=== PATIENT | male | born 1940 | race Caucasian/White ===

== ENCOUNTER → 2017-04-16 13:52 | Outpatient (CLI) | payer MEDICARE, OTHER, SELFPAY ==
[2017-04-16 13:59] LABS: Bacteria 0 SEEN /hpf (None Seen); Mucous, Urine 0 SEEN /hpf (<or=2+); Red Blood Cells-Urine 0 SEEN /hpf (0-5)
[2017-04-16 16:06] LABS: Hematocrit 39.6 % (40-54); Hemoglobin 13.5 g/dl (13.0-16.5); Mean Corp Hgb Conc 34.1 g/gl (32-36); Mean Corpuscular Hgb 31.7 pg (27.0-32.0); Mean Platelet Vol. 10.6 fl (6.2-12.0); Platelet Count 171 K/mm3 (150-450); RBC Distribution Width CV 14.1 % (11.6-14.6); RBC Distribution Width SD 47.4 fl (35.1-43.9); Red Blood Count 4.26 M/mm3 (4.6-6.2); White Blood Count 4.4 K/mm3 (4.4-11.0)
[2017-04-16 16:13] LABS: Color, Urine Yellow (Yellow); Glucose, Dipstick Normal (Normal); Ketone-Dipstick 5 mg/dl (Negative); Leukocyte Esterase-Dipstick 25 /ul (Negative); Nitrite-Dipstick Negative (Negative); Occult Blood-Urine Negative /ul (Negative); Protein-Dipstick Negative (Negative); Urine Bilirubin Dipstick Negative (Negative); Urine Clarity Clear (Clear); Urine Urobilinogen Normal (Normal)
[2017-04-16 16:18] LABS: Hemoglobin A1c 7.1 % (4.2-6.3)
[2017-04-16 16:21] LABS: ALB/GLOB Ratio 0.8 RATIO (0.9-2.4); AST(SGOT) 21 U/L (15-37); Alanine Aminotransfer ALT/SGPT 25 U/L (16-61); Albumin, Serum 3.5 g/dL (3.2-5.0); Alkaline Phosphatase 73 U/L (45-117); Anion Gap 5 (5-15); BUN 15 mg/dL (7-18); BUN/Creat Ratio 14.2 RATIO (10-20); Calcium,Total 8.9 mg/dL (8.5-10.1); Chloride 102 mmol/L (98-107); Cholesterol 156 mg/dL (200); Creatinine, Serum 1.06 mg/dL (0.70-1.30); EST Glomerular Filtration Rate 73 mL/min (>60); Est Glom Filt Rate - Afr Amer 88 mL/min (>60); Globulin 4.4 g/dL (2.2-4.2); Glucose 74 mg/dL (74-106); High Density Lipoprotein 59 mg/dL; Potassium 3.8 mmol/L (3.5-5.1); Protein, Total 7.9 g/dL (6.4-8.2); Sodium Level 138 mmol/L (136-145); T4 Free Direct 0.78 ng/dL (0.76-1.46); Thyroid Stim Hormone (TSH) 7.05 uIU/mL (0.358-3.74); Triglycerides 135 mg/dL; Very Low Density Lipoprotein 27 mg/dL (5-40)
[2017-04-16 16:33] LABS: Squamous Epithelial Cells - UA 0-5 SEEN /hpf (0-5); White Blood Cells 0-5 SEEN /hpf (0-5)
[2017-04-16 16:53] LABS: Scan Indicated on CBC? Y/N NO
[2017-04-19 08:06] LABS: Anti-Thyroglobulin AB < 1.0 IU/mL (0.0-0.9); Thyroglobulin, Serum Qt. 11.2 ng/mL (1.4-29.2); Thyroid Peroxidase AB 11 IU/mL (0-34)
== END ==
PROVIDERS: Family Provider Family Medicine; PCP Family Medicine; Visit Provider Family Medicine
DX: E11.9 Type 2 diabetes mellitus without complications (principal); E03.9 Hypothyroidism, unspecified
CPT/HCPCS: 36415; 80053; 80061; 81001; 83036; 84432; 84439; 84443; 85027; 86376; 86800

== ENCOUNTER → 2017-08-19 11:45 | Outpatient (CLI) | payer MEDICARE, OTHER, SELFPAY ==
[2017-08-19 14:29] LABS: Color, Urine Yellow (Yellow); Glucose, Dipstick Normal (Normal); Ketone-Dipstick Negative (Negative); Leukocyte Esterase-Dipstick 25 /ul (Negative); Nitrite-Dipstick Negative (Negative); Occult Blood-Urine Negative /ul (Negative); Protein-Dipstick Negative (Negative); Specific Gravity, Urine 1.025 (1.002-1.030); Urine Bilirubin Dipstick Negative (Negative); Urine Clarity Clear (Clear); Urine Urobilinogen Normal (Normal)
[2017-08-19 14:45] LABS: Red Blood Cells-Urine 0-5 SEEN /hpf (0-5); White Blood Cells 0-5 SEEN /hpf (0-5)
[2017-08-19 14:47] LABS: Bacteria 1+ /hpf (None Seen); Mucous, Urine 1+ /hpf (<or=2+)
[2017-08-19 14:50] LABS: Hyaline Cast 5-10 SEEN /lpf (0-5)
[2017-08-19 14:51] LABS: Squamous Epithelial Cells - UA 0-5 SEEN /hpf (0-5)
[2017-08-19 14:55] LABS: Calcium Oxalate Crystals Ur 2+ /hpf (<or=2+)
[2017-08-19 14:58] LABS: Hematocrit 40.8 % (40-54); Hemoglobin 14.4 g/dl (13.0-16.5); Mean Corp Hgb Conc 35.3 g/gl (32-36); Mean Corpuscular Hgb 32.8 pg (27.0-32.0); Mean Corpuscular Volume 92.9 fL (80-94); Platelet Count 163 K/mm3 (150-450); RBC Distribution Width CV 12.6 % (11.6-14.6); RBC Distribution Width SD 41.9 fl (35.1-43.9); Red Blood Count 4.39 M/mm3 (4.6-6.2); White Blood Count 5.4 K/mm3 (4.4-11.0)
[2017-08-19 15:01] LABS: Scan Indicated on CBC? Y/N NO
[2017-08-19 15:07] LABS: ALB/GLOB Ratio 0.7 RATIO (0.9-2.4); AST(SGOT) 19 U/L (15-37); Alanine Aminotransfer ALT/SGPT 28 U/L (16-61); Albumin, Serum 3.5 g/dL (3.2-5.0); Alkaline Phosphatase 71 U/L (45-117); Anion Gap 6 (5-15); BUN 20 mg/dL (7-18); BUN/Creat Ratio 17.1 RATIO (10-20); Calcium,Total 8.7 mg/dL (8.5-10.1); Chloride 105 mmol/L (98-107); Cholesterol 161 mg/dL (200); Creatinine, Serum 1.17 mg/dL (0.70-1.30); EST Glomerular Filtration Rate 65 mL/min (>60); Est Glom Filt Rate - Afr Amer 78 mL/min (>60); Globulin 4.7 g/dL (2.2-4.2); Glucose 134 mg/dL (74-106); High Density Lipoprotein 63 mg/dL; Potassium 4.3 mmol/L (3.5-5.1); Protein, Total 8.2 g/dL (6.4-8.2); Sodium Level 141 mmol/L (136-145); T4 Free Direct 0.87 ng/dL (0.76-1.46); Thyroid Stim Hormone (TSH) 3.76 uIU/mL (0.358-3.74); Triglycerides 86 mg/dL; Very Low Density Lipoprotein 17 mg/dL (5-40)
[2017-08-19 15:10] LABS: Hemoglobin A1c 6.2 % (4.2-6.3)
[2017-08-21 09:35] LABS: Anti-Thyroglobulin AB < 1.0 IU/mL (0.0-0.9); Thyroglobulin, Serum Qt. 7.9 ng/mL (1.4-29.2); Thyroid Peroxidase AB 8 IU/mL (0-34)
== END ==
PROVIDERS: Family Provider Family Medicine; PCP Family Medicine; Visit Provider Family Medicine
DX: E11.9 Type 2 diabetes mellitus without complications (principal); E03.9 Hypothyroidism, unspecified
CPT/HCPCS: 80053; 80061; 81001; 83036; 84432; 84439; 84443; 85027; 86376; 86800

== ENCOUNTER → 2017-11-20 14:15 | Outpatient (CLI) | payer MEDICARE, OTHER, SELFPAY ==
[2017-11-20 16:04] LABS: Absolute Lymphocyte Count 0.42 X10^3/ul (0.83-4.51); Absolute Neutrophil Count 5.2 X10^3/uL (2.0-7.7); Basophil# 0.01 X10^3/uL; Basophil% 0.2 % (0-1); Eosinophil# 0.04 X10^3/uL; Eosinophils% 0.7 % (0-5); Hematocrit 37.5 % (40-54); Hemoglobin 13.4 g/dl (13.0-16.5); Lymphocyte # 0.42 X10^3/ul (4.0); Lymphocyte % 6.8 % (19-41); Mean Corp Hgb Conc 35.7 g/gl (32-36); Mean Corpuscular Hgb 33.2 pg (27.0-32.0); Mean Corpuscular Volume 92.8 fL (80-94); Mean Platelet Vol. 10.7 fl (6.2-12.0); Monocyte# 0.52 X10^3/uL; Monocyte% 8.5 % (0-10); Neutrophil # 5.15 X10^3/uL (2.7-7.7); Neutrophil % 83.6 % (47-70); Platelet Count 160 K/mm3 (150-450); RBC Distribution Width SD 39.9 fl (35.1-43.9); Red Blood Count 4.04 M/mm3 (4.6-6.2); White Blood Count 6.2 K/mm3 (4.4-11.0)
[2017-11-20 16:07] LABS: Differential Indicated SCAN CRITERIA MET; POSITIVE COUNT NO; POSITIVE DIFFERENTIAL YES; POSITIVE MORPHOLOGY NO
[2017-11-20 16:21] LABS: ALB/GLOB Ratio 0.7 RATIO (0.9-2.4); AST(SGOT) 18 U/L (15-37); Alanine Aminotransfer ALT/SGPT 27 U/L (16-61); Albumin, Serum 3.3 g/dL (3.2-5.0); Alkaline Phosphatase 109 U/L (45-117); Anion Gap 10 (5-15); BUN 14 mg/dL (7-18); BUN/Creat Ratio 11.8 RATIO (10-20); Calcium,Total 8.9 mg/dL (8.5-10.1); Chloride 100 mmol/L (98-107); Creatinine, Serum 1.19 mg/dL (0.70-1.30); EST Glomerular Filtration Rate 63 mL/min (>60); Est Glom Filt Rate - Afr Amer 77 mL/min (>60); Globulin 4.5 g/dL (2.2-4.2); Glucose 224 mg/dL (74-106); Potassium 3.9 mmol/L (3.5-5.1); Protein, Total 7.8 g/dL (6.4-8.2); Sodium Level 138 mmol/L (136-145); Thyroid Stim Hormone (TSH) 0.62 uIU/mL (0.358-3.74)
[2017-11-20 16:23] LABS: Hemoglobin A1c 7.3 % (4.2-6.3)
== END ==
PROVIDERS: Family Provider Family Medicine; PCP Family Medicine; Visit Provider Family Medicine
DX: E11.9 Type 2 diabetes mellitus without complications (principal); E03.9 Hypothyroidism, unspecified; J44.9 Chronic obstructive pulmonary disease, unspecified
CPT/HCPCS: 36415; 80053; 83036; 84443; 85025

== ENCOUNTER → 2018-02-10 13:45 | Outpatient (CLI) | payer MEDICARE, OTHER, SELFPAY ==
[2018-02-10 15:43] LABS: Absolute Lymphocyte Count 0.77 X10^3/ul (0.83-4.51); Absolute Neutrophil Count 3.8 X10^3/uL (2.0-7.7); Basophil# 0.03 X10^3/uL; Basophil% 0.6 % (0-1); Eosinophil# 0.06 X10^3/uL; Eosinophils% 1.2 % (0-5); Hematocrit 42.6 % (40-54); Hemoglobin 14.9 g/dl (13.0-16.5); Lymphocyte # 0.77 X10^3/ul (4.0); Lymphocyte % 15.1 % (19-41); Mean Corpuscular Hgb 32.3 pg (27.0-32.0); Mean Corpuscular Volume 92.4 fL (80-94); Mean Platelet Vol. 10.6 fl (6.2-12.0); Monocyte# 0.42 X10^3/uL; Monocyte% 8.2 % (0-10); Neutrophil # 3.81 X10^3/uL (2.7-7.7); Neutrophil % 74.7 % (47-70); Platelet Count 169 K/mm3 (150-450); RBC Distribution Width CV 13.6 % (11.6-14.6); RBC Distribution Width SD 45.4 fl (35.1-43.9); Red Blood Count 4.61 M/mm3 (4.6-6.2); White Blood Count 5.1 K/mm3 (4.4-11.0)
[2018-02-10 16:01] LABS: Microalbumin,Random Urine 17.7 mg/L (NO RANGE EST.); Microalbumin:Creatinine Ratio 7.3 mg/g CRE (<30 mg/g CRE)
[2018-02-10 16:07] LABS: ALB/GLOB Ratio 0.8 RATIO (0.9-2.4); AST(SGOT) 20 U/L (15-37); Alanine Aminotransfer ALT/SGPT 28 U/L (16-61); Albumin, Serum 3.7 g/dL (3.2-5.0); Alkaline Phosphatase 85 U/L (45-117); Anion Gap 9 (5-15); BUN 15 mg/dL (7-18); BUN/Creat Ratio 12.9 RATIO (10-20); Calcium,Total 9.2 mg/dL (8.5-10.1); Chloride 100 mmol/L (98-107); Cholesterol 167 mg/dL (200); Creatinine, Serum 1.16 mg/dL (0.70-1.30); EST Glomerular Filtration Rate 65 mL/min (>60); Est Glom Filt Rate - Afr Amer 79 mL/min (>60); Globulin 4.6 g/dL (2.2-4.2); Glucose 182 mg/dL (74-106); High Density Lipoprotein 60 mg/dL; Potassium 4.5 mmol/L (3.5-5.1); Protein, Total 8.3 g/dL (6.4-8.2); Sodium Level 138 mmol/L (136-145); T4 Free Direct 1.08 ng/dL (0.76-1.46); Thyroid Stim Hormone (TSH) 2.31 uIU/mL (0.358-3.74); Triglycerides 158 mg/dL; Very Low Density Lipoprotein 32 mg/dL (5-40)
[2018-02-10 16:09] LABS: POSITIVE COUNT NO; POSITIVE DIFFERENTIAL NO; POSITIVE MORPHOLOGY NO
[2018-02-10 16:14] LABS: Hemoglobin A1c 8.3 % (4.2-6.3)
== END ==
PROVIDERS: Family Provider Family Medicine; PCP Family Medicine; Visit Provider Family Medicine
DX: E11.9 Type 2 diabetes mellitus without complications (principal); E03.9 Hypothyroidism, unspecified; J44.9 Chronic obstructive pulmonary disease, unspecified
CPT/HCPCS: 36415; 80053; 80061; 82043; 82570; 83036; 84439; 84443; 85025

== ENCOUNTER → 2018-04-29 12:17 | Outpatient (CLI) | payer MEDICARE, OTHER, SELFPAY ==
--- NOTE | 2018-04-29 12:22 | RAD_ITS ---
HISTORY: COPD exacerbationleft lung surgery 2 years ago EXAM/TECHNIQUE: XR Chest 2 Views: COMPARISON: None. FINDINGS: # of images incl. paperwork: 3 Chronic postsurgical changes left lung apex with partial left pneumonectomy, surgical clips, rib defects, and volume loss. Patchy opacities mid and lower lungs bilaterally. No apparent pneumothorax or pleural effusion. No acute osseous abnormality. Heart size within normal limits. RAD/Chest PA and Lateral IMPRESSION: Patchy opacities mid and lower lungs bilaterally. Without priors of acute edema or pneumonia cannot be excluded. This could potentially be chronic however. Status post partial left pneumonectomy. at 2241 Reported and signed by: Caden Riley MD Electronically Signed: Caden Riley, at 22:40 EST Tel , Service support ,
== END ==
PROVIDERS: Family Provider Family Medicine; PCP Family Medicine; Referring Provider Family Medicine; Visit Provider Family Medicine
DX: J44.1 Chronic obstructive pulmonary disease with (acute) exacerbation (principal)
CPT/HCPCS: 71046

== ENCOUNTER → 2018-06-27 | Outpatient (CLI) | payer MEDICARE, OTHER, SELFPAY ==
[2018-06-27 18:10] LABS: ALB/GLOB Ratio 0.9 RATIO (0.9-2.4); AST(SGOT) 28 U/L (15-37); Alanine Aminotransfer ALT/SGPT 31 U/L (16-61); Albumin, Serum 3.8 g/dL (3.2-5.0); Alkaline Phosphatase 77 U/L (45-117); Anion Gap 6 (5-15); BUN 10 mg/dL (7-18); BUN/Creat Ratio 8.5 RATIO (10-20); Calcium,Total 8.8 mg/dL (8.5-10.1); Chloride 105 mmol/L (98-107); Cholesterol 155 mg/dL (200); Creatinine, Serum 1.18 mg/dL (0.70-1.30); EST Glomerular Filtration Rate 64 mL/min (>60); Est Glom Filt Rate - Afr Amer 77 mL/min (>60); Globulin 4.1 g/dL (2.2-4.2); Glucose 116 mg/dL (74-106); High Density Lipoprotein 60 mg/dL; Potassium 4.1 mmol/L (3.5-5.1); Protein, Total 7.9 g/dL (6.4-8.2); Sodium Level 141 mmol/L (136-145); Triglycerides 122 mg/dL; Very Low Density Lipoprotein 24 mg/dL (5-40)
[2018-06-27 18:11] LABS: Hemoglobin A1c 6.1 % (4.2-6.3)
== END | disposition home or self-care (01) ==
LOC: MFPLAB 15:12
PROVIDERS: Family Provider Family Medicine; PCP Family Medicine; Referring Provider Family Medicine; Visit Provider Family Medicine
DX: E11.9 Type 2 diabetes mellitus without complications (principal)
CPT/HCPCS: 36415; 80053; 80061; 83036

== ENCOUNTER → 2018-10-01 | Outpatient (CLI) | payer MEDICARE, OTHER, SELFPAY ==
--- NOTE | 2018-10-01 12:01 | RAD_ITS ---
STUDY: X-RAY CHEST REASON FOR EXAM: Male, 77 years old. COPD, shortness of breath. TECHNIQUE: PA and lateral views of the chest on 3 films. COMPARISON: PA and lateral chest x-ray on 3 images April 29, 2018. FINDINGS: Postsurgical changes at the left apex again noted. There is chronic appearing stranding in the left lung base and stable left apical opacity. Borderline to mild interstitial prominence in the right base is stable. No new infiltrate. There is no demonstrated pleural abnormality. Normal size heart. There is stable leftward deviation of the airway at the level of the thoracic inlet and cephalad retraction of left hilum toward the left lung opacity/postsurgical change, consistent with regional scarring and volume loss. Normal right paratracheal mediastinum and right hilum. Normal visualized pulmonary arteries. Normal visualized aortic arch and descending thoracic aorta. There are stable degenerative changes of the visualized thoracic spine. Normal visualized ribs, clavicles, and shoulders. There is no demonstrated abnormality of the visualized soft tissue structures of the upper abdomen. RAD/Chest PA and Lateral IMPRESSION: Stable x-ray examination of the chest since April 2018, as described. Electronically Signed: Rigoberto Lowe MD at 13:56 EDT , Service support ,
== END | disposition home or self-care (01) ==
LOC: MTRAD 11:59
PROVIDERS: Family Provider Family Medicine; PCP Family Medicine; Referring Provider Family Medicine; Visit Provider Family Medicine
DX: J44.1 Chronic obstructive pulmonary disease with (acute) exacerbation (principal)
CPT/HCPCS: 71046

== ENCOUNTER → 2018-11-19 | Outpatient (CLI) | payer MEDICARE, OTHER, SELFPAY ==
[2018-11-19 17:32] LABS: Absolute Lymphocyte Count 0.71 X10^3/uL (0.83-4.51); Absolute Neutrophil Count 3.7 X10^3/uL (2.0-7.7); Basophil# 0.03 X10^3/uL; Basophil% 0.6 % (0-1); Eosinophil# 0.07 X10^3/uL; Eosinophils% 1.4 % (0-5); Hematocrit 40.2 % (40-54); Hemoglobin 13.8 g/dL (13.0-16.5); Lymphocyte # 0.71 X10^3/ul (4.0); Lymphocyte % 13.8 % (19-41); Mean Corp Hgb Conc 34.3 g/dL (32-36); Mean Corpuscular Hgb 32.7 pg (27.0-32.0); Mean Corpuscular Volume 95.3 fL (80-94); Mean Platelet Vol. 10.9 fl (6.2-12.0); Monocyte# 0.59 X10^3/uL; Monocyte% 11.5 % (0-10); NRBC Flagged by Analyzer 0 % (0-5); Neutrophil # 3.72 X10^3/uL (2.7-7.7); Neutrophil % 72.5 % (47-70); Platelet Count 159 K/mm3 (150-450); RBC Distribution Width CV 13.1 % (11.6-14.6); RBC Distribution Width SD 45.4 fl (35.1-43.9); Red Blood Count 4.22 M/mm3 (4.6-6.2); White Blood Count 5.1 K/mm3 (4.4-11.0)
[2018-11-19 17:54] LABS: Microalbumin,Random Urine 7.8 mg/L (NO RANGE EST.); Microalbumin:Creatinine Ratio 5.7 mg/g CRE (<30 mg/g CRE)
[2018-11-19 18:04] LABS: ALB/GLOB Ratio 0.8 RATIO (0.9-2.4); AST(SGOT) 24 U/L (15-37); Alanine Aminotransfer ALT/SGPT 25 U/L (16-61); Albumin, Serum 3.4 g/dL (3.2-5.0); Alkaline Phosphatase 79 U/L (45-117); Anion Gap 6 (5-15); BUN 12 mg/dL (7-18); BUN/Creat Ratio 9.4 RATIO (10-20); Calcium,Total 8.7 mg/dL (8.5-10.1); Chloride 107 mmol/L (98-107); Cholesterol 153 mg/dL (200); Creatinine, Serum 1.27 mg/dL (0.70-1.30); EST Glomerular Filtration Rate 59 mL/min (>60); Est Glom Filt Rate - Afr Amer 71 mL/min (>60); Globulin 4.1 g/dL (2.2-4.2); Glucose 169 mg/dL (74-106); High Density Lipoprotein 75 mg/dL; Potassium 4.1 mmol/L (3.5-5.1); Protein, Total 7.5 g/dL (6.4-8.2); Sodium Level 141 mmol/L (136-145); T4 Free Direct 0.87 ng/dL (0.76-1.46); Thyroid Stim Hormone (TSH) 4.78 uIU/mL (0.358-3.74); Triglycerides 86 mg/dL; Very Low Density Lipoprotein 17 mg/dL (5-40)
== END | disposition home or self-care (01) ==
LOC: MFPLAB 15:48
PROVIDERS: Family Provider Family Medicine; PCP Family Medicine; Referring Provider Family Medicine; Visit Provider Family Medicine
DX: E11.9 Type 2 diabetes mellitus without complications (principal); E03.9 Hypothyroidism, unspecified; J44.9 Chronic obstructive pulmonary disease, unspecified
CPT/HCPCS: 36415; 80053; 80061; 82043; 82570; 83036; 84439; 84443; 85025

== ENCOUNTER → 2019-02-10 14:20 | Outpatient (CLI) | payer MEDICARE, OTHER, SELFPAY ==
[2019-02-10 15:14] LABS: Absolute Lymphocyte Count 0.66 X10^3/uL (0.83-4.51); Absolute Neutrophil Count 5.5 X10^3/uL (2.0-7.7); Basophil# 0.04 X10^3/uL; Basophil% 0.6 % (0-1); Eosinophil# 0.09 X10^3/uL; Eosinophils% 1.3 % (0-5); Hematocrit 43.9 % (40-54); Hemoglobin 14.9 g/dL (13.0-16.5); Lymphocyte # 0.66 X10^3/ul (4.0); Lymphocyte % 9.6 % (19-41); Mean Corp Hgb Conc 33.9 g/dL (32-36); Mean Corpuscular Hgb 31.5 pg (27.0-32.0); Mean Corpuscular Volume 92.8 fL (80-94); Mean Platelet Vol. 10.8 fl (6.2-12.0); Monocyte# 0.55 X10^3/uL; NRBC Flagged by Analyzer 0 % (0-5); Neutrophil # 5.52 X10^3/uL (2.7-7.7); Neutrophil % 80.1 % (47-70); Platelet Count 198 K/mm3 (150-450); RBC Distribution Width CV 11.9 % (11.6-14.6); Red Blood Count 4.73 M/mm3 (4.6-6.2); White Blood Count 6.9 K/mm3 (4.4-11.0)
[2019-02-10 15:30] LABS: Hemoglobin A1c 7.1 % (4.2-6.3)
[2019-02-10 15:40] LABS: ALB/GLOB Ratio 0.8 RATIO (0.9-2.4); AST(SGOT) 19 U/L (15-37); Alanine Aminotransfer ALT/SGPT 26 U/L (16-61); Albumin, Serum 3.7 g/dL (3.2-5.0); Alkaline Phosphatase 77 U/L (45-117); Anion Gap 9 (5-15); BUN 15 mg/dL (7-18); BUN/Creat Ratio 9.4 RATIO (10-20); Calcium,Total 9.5 mg/dL (8.5-10.1); Chloride 102 mmol/L (98-107); Cholesterol 131 mg/dL (200); Creatinine, Serum 1.59 mg/dL (0.70-1.30); EST Glomerular Filtration Rate 45 mL/min (>60); Est Glom Filt Rate - Afr Amer 55 mL/min (>60); Globulin 4.7 g/dL (2.2-4.2); Glucose 198 mg/dL (74-106); High Density Lipoprotein 67 mg/dL; Potassium 4.6 mmol/L (3.5-5.1); Protein, Total 8.4 g/dL (6.4-8.2); Sodium Level 137 mmol/L (136-145); Thyroid Stim Hormone (TSH) 4.55 uIU/mL (0.358-3.74); Triglycerides 101 mg/dL; Very Low Density Lipoprotein 20 mg/dL (5-40)
== END ==
PROVIDERS: Family Provider Family Medicine; PCP Family Medicine; Visit Provider Family Medicine
DX: E11.9 Type 2 diabetes mellitus without complications (principal); E03.9 Hypothyroidism, unspecified; J44.9 Chronic obstructive pulmonary disease, unspecified
CPT/HCPCS: 36415; 80053; 80061; 83036; 84443; 85025

== ENCOUNTER → 2019-03-05 10:06 | Outpatient (CLI) | payer MEDICARE, OTHER, SELFPAY ==
[2019-03-05 12:33] LABS: Anion Gap 5 (5-15); BUN 15 mg/dL (7-18); BUN/Creat Ratio 12.9 RATIO (10-20); Chloride 105 mmol/L (98-107); Creatinine, Serum 1.16 mg/dL (0.70-1.30); EST Glomerular Filtration Rate 65 mL/min (>60); Est Glom Filt Rate - Afr Amer 79 mL/min (>60); Glucose 192 mg/dL (74-106); Potassium 4.1 mmol/L (3.5-5.1); Sodium Level 138 mmol/L (136-145)
== END ==
PROVIDERS: Family Provider Family Medicine; PCP Family Medicine; Referring Provider Family Medicine; Visit Provider Family Medicine
DX: N18.3 Chronic kidney disease, stage 3 (moderate) (principal)
CPT/HCPCS: 36415; 80048

== ENCOUNTER → 2019-05-13 | Outpatient (CLI) | payer MEDICARE, OTHER, SELFPAY ==
[2019-05-13 15:50] LABS: Hemoglobin A1c 6.2 % (4.2-6.3)
[2019-05-13 15:57] LABS: Microalbumin,Random Urine 11.3 mg/L (NO RANGE EST.); Microalbumin:Creatinine Ratio 10.6 mg/g CRE (<30 mg/g CRE)
[2019-05-13 16:00] LABS: ALB/GLOB Ratio 0.8 RATIO (0.9-2.4); AST(SGOT) 22 U/L (15-37); Alanine Aminotransfer ALT/SGPT 26 U/L (16-61); Albumin, Serum 3.6 g/dL (3.2-5.0); Alkaline Phosphatase 71 U/L (45-117); Anion Gap 6 (5-15); BUN 16 mg/dL (7-18); BUN/Creat Ratio 13.6 RATIO (10-20); Calcium,Total 8.8 mg/dL (8.5-10.1); Chloride 107 mmol/L (98-107); Creatinine, Serum 1.18 mg/dL (0.70-1.30); EST Glomerular Filtration Rate 64 mL/min (>60); Est Glom Filt Rate - Afr Amer 77 mL/min (>60); Globulin 4.4 g/dL (2.2-4.2); Glucose 152 mg/dL (74-106); Potassium 4.1 mmol/L (3.5-5.1); Sodium Level 139 mmol/L (136-145); T4 Free Direct 1.27 ng/dL (0.76-1.46); Thyroid Stim Hormone (TSH) 0.64 uIU/mL (0.358-3.74)
== END | disposition home or self-care (01) ==
LOC: MTLAB 11:53
PROVIDERS: PCP Family Medicine; Referring Provider Family Medicine; Visit Provider Family Medicine
DX: E03.9 Hypothyroidism, unspecified (principal); E11.22 Type 2 diabetes mellitus with diabetic chronic kidney disease; N18.3 Chronic kidney disease, stage 3 (moderate)
CPT/HCPCS: 36415; 80053; 82043; 82570; 83036; 84439; 84443

== ENCOUNTER → 2019-12-18 | Outpatient (CLI) | payer MEDICARE, OTHER, SELFPAY ==
[2019-12-18 15:10] LABS: Bacteria 0 SEEN /hpf (None Seen); Mucous, Urine 0 SEEN /hpf (<or=2+); Red Blood Cells-Urine 0 SEEN /hpf (0-5); Squamous Epithelial Cells - UA 0 SEEN /hpf (0-5); White Blood Cells 0 SEEN /hpf (0-5)
[2019-12-18 17:39] LABS: Color, Urine Yellow (Yellow); Glucose, Dipstick Normal (Normal); Ketone-Dipstick Negative (Negative); Leukocyte Esterase-Dipstick Negative /ul (Negative); Nitrite-Dipstick Negative (Negative); Occult Blood-Urine Negative /ul (Negative); Protein-Dipstick 15 mg/dl (Negative); Specific Gravity, Urine 1.015 (1.002-1.030); Urine Bilirubin Dipstick Negative (Negative); Urine Clarity Clear (Clear); Urine Urobilinogen Normal (Normal)
[2019-12-18 17:41] LABS: Absolute Lymphocyte Count 0.68 X10^3/uL (0.83-4.51); Absolute Neutrophil Count 3.4 X10^3/uL (2.0-7.7); Basophil# 0.03 X10^3/uL; Basophil% 0.6 % (0-1); Eosinophil# 0.07 X10^3/uL; Eosinophils% 1.5 % (0-5); Hematocrit 40.9 % (40-54); Hemoglobin 14.1 g/dL (13.0-16.5); Lymphocyte # 0.68 X10^3/ul (4.0); Lymphocyte % 14.5 % (19-41); Mean Corp Hgb Conc 34.5 g/dL (32-36); Mean Corpuscular Hgb 32.5 pg (27.0-32.0); Mean Corpuscular Volume 94.2 fL (80-94); Mean Platelet Vol. 11.1 fl (6.2-12.0); Monocyte# 0.51 X10^3/uL; Monocyte% 10.9 % (0-10); NRBC Flagged by Analyzer 0 % (0-5); Neutrophil # 3.38 X10^3/uL (2.7-7.7); Neutrophil % 72.3 % (47-70); Platelet Count 164 K/mm3 (150-450); RBC Distribution Width CV 13.4 % (11.6-14.6); RBC Distribution Width SD 45.6 fl (35.1-43.9); Red Blood Count 4.34 M/mm3 (4.6-6.2); White Blood Count 4.7 K/mm3 (4.4-11.0)
[2019-12-18 17:42] LABS: Protein:Creat Ratio 82 mg/g CRE (0-200)
[2019-12-18 17:49] LABS: Hemoglobin A1c 6.3 % (3.8-5.6); Vitamin D,25 Hydroxy 48.3 ng/mL
[2019-12-18 18:03] LABS: ALB/GLOB Ratio 0.8 RATIO (0.9-2.4); AST(SGOT) 18 U/L (15-37); Alanine Aminotransfer ALT/SGPT 28 U/L (16-61); Albumin, Serum 3.4 g/dL (3.2-5.0); Alkaline Phosphatase 85 U/L (45-117); Anion Gap 5 (5-15); BUN 16 mg/dL (7-18); BUN/Creat Ratio 13.4 RATIO (10-20); Calcium,Total 8.7 mg/dL (8.5-10.1); Chloride 104 mmol/L (98-107); Creatinine, Serum 1.19 mg/dL (0.70-1.30); EST Glomerular Filtration Rate 63 mL/min (>60); Est Glom Filt Rate - Afr Amer 76 mL/min (>60); Globulin 4.5 g/dL (2.2-4.2); Glucose 108 mg/dL (74-106); Potassium 4.2 mmol/L (3.5-5.1); Protein, Total 7.9 g/dL (6.4-8.2); Sodium Level 138 mmol/L (136-145); T4 Free Direct 1.02 ng/dL (0.76-1.46)
[2019-12-18 18:12] LABS: PTHIN 51.2 pg/mL (18.4-80.1)
== END | disposition home or self-care (01) ==
LOC: MFPLAB 15:07
PROVIDERS: PCP Family Medicine; Referring Provider Family Medicine; Visit Provider Family Medicine
DX: E03.9 Hypothyroidism, unspecified (principal); E11.22 Type 2 diabetes mellitus with diabetic chronic kidney disease; N18.30 Chronic kidney disease, stage 3 unspecified
CPT/HCPCS: 36415; 80053; 81001; 82306; 82570; 83036; 83970; 84156; 84439; 84443; 85025

== ENCOUNTER → 2020-04-19 10:14 | Outpatient (CLI) | payer MEDICARE, OTHER, SELFPAY ==
[2020-04-19 12:21] LABS: Absolute Lymphocyte Count 0.91 X10^3/uL (0.83-4.51); Basophil# 0.03 X10^3/uL; Basophil% 0.5 % (0-1); Eosinophil# 0.09 X10^3/uL; Eosinophils% 1.6 % (0-5); Hemoglobin 14.5 g/dL (13.0-16.5); Lymphocyte # 0.91 X10^3/ul (4.0); Mean Corp Hgb Conc 35.4 g/dL (32-36); Mean Corpuscular Volume 96.2 fL (80-94); Monocyte# 0.64 X10^3/uL; Monocyte% 11.2 % (0-10); NRBC Flagged by Analyzer 0 % (0-5); Neutrophil # 4.01 X10^3/uL (2.7-7.7); Neutrophil % 70.3 % (47-70); Platelet Count 167 K/mm3 (150-450); RBC Distribution Width CV 12.6 % (11.6-14.6); RBC Distribution Width SD 43.7 fl (35.1-43.9); Red Blood Count 4.26 M/mm3 (4.6-6.2); White Blood Count 5.7 K/mm3 (4.4-11.0)
[2020-04-19 12:44] LABS: Hemoglobin A1c 6.4 % (3.8-5.6)
[2020-04-19 13:02] LABS: ALB/GLOB Ratio 0.8 RATIO (0.9-2.4); AST(SGOT) 21 U/L (15-37); Alanine Aminotransfer ALT/SGPT 26 U/L (16-61); Albumin, Serum 3.5 g/dL (3.2-5.0); Alkaline Phosphatase 91 U/L (45-117); Anion Gap 5 (5-15); BUN 18 mg/dL (7-18); BUN/Creat Ratio 13.4 RATIO (10-20); Calcium,Total 9.4 mg/dL (8.5-10.1); Chloride 101 mmol/L (98-107); Creatinine, Serum 1.34 mg/dL (0.70-1.30); EST Glomerular Filtration Rate 55 mL/min (>60); Est Glom Filt Rate - Afr Amer 66 mL/min (>60); Globulin 4.6 g/dL (2.2-4.2); Glucose 228 mg/dL (74-106); Potassium 4.2 mmol/L (3.5-5.1); Protein, Total 8.1 g/dL (6.4-8.2); Sodium Level 135 mmol/L (136-145); Thyroid Stim Hormone (TSH) 5.54 uIU/mL (0.358-3.74)
[2020-04-19 13:13] LABS: Microalbumin,Random Urine 21.6 mg/L (NO RANGE EST.); Microalbumin:Creatinine Ratio 15.4 mg/g CRE (<30 mg/g CRE)
== END ==
PROVIDERS: PCP Family Medicine; Referring Provider Family Medicine; Visit Provider Family Medicine
DX: E03.9 Hypothyroidism, unspecified (principal); J44.9 Chronic obstructive pulmonary disease, unspecified; E11.22 Type 2 diabetes mellitus with diabetic chronic kidney disease; N18.30 Chronic kidney disease, stage 3 unspecified
CPT/HCPCS: 36415; 80053; 82043; 82570; 83036; 84443; 85025

== ENCOUNTER → 2020-08-02 11:24 | Outpatient (CLI) | payer MEDICARE, SELFPAY ==
[2020-08-02 15:21] LABS: Absolute Lymphocyte Count 0.55 X10^3/uL (0.83-4.51); Basophil# 0.03 X10^3/uL; Basophil% 0.4 % (0-1); Eosinophil# 0.09 X10^3/uL; Eosinophils% 1.2 % (0-5); Hematocrit 36.1 % (40-54); Hemoglobin 12.4 g/dL (13.0-16.5); Lymphocyte # 0.55 X10^3/ul (0.83-4.51); Lymphocyte % 7.4 % (19-41); Mean Corp Hgb Conc 34.3 g/dL (32-36); Mean Corpuscular Hgb 32.2 pg (27.0-32.0); Mean Corpuscular Volume 93.8 fL (80-94); Mean Platelet Vol. 10.7 fl (6.2-12.0); Monocyte# 0.73 X10^3/uL; Monocyte% 9.8 % (0-10); NRBC Flagged by Analyzer 0 % (0-5); Neutrophil # 6.01 X10^3/uL (2.7-7.7); Neutrophil % 80.8 % (47-70); POSITIVE DIFFERENTIAL YES; Platelet Count 284 K/mm3 (150-450); RBC Distribution Width CV 11.8 % (11.6-14.6); RBC Distribution Width SD 40.5 fl (35.1-43.9); Red Blood Count 3.85 M/mm3 (4.6-6.2); White Blood Count 7.4 K/mm3 (4.4-11.0)
[2020-08-02 15:23] LABS: Differential Indicated SCAN CRITERIA MET
[2020-08-02 15:35] LABS: Protein, Urine (Random) 54.5 mg/dL (<11.9); Protein:Creat Ratio 349 mg/g CRE (0-200)
[2020-08-02 15:38] LABS: Hemoglobin A1c 7.7 % (3.8-5.6)
[2020-08-02 15:44] LABS: ALB/GLOB Ratio 0.5 RATIO (0.9-2.4); AST(SGOT) 16 U/L (15-37); Alanine Aminotransfer ALT/SGPT 24 U/L (16-61); Albumin, Serum 2.8 g/dL (3.2-5.0); Alkaline Phosphatase 110 U/L (45-117); Anion Gap 6 (5-15); BUN 17 mg/dL (7-18); BUN/Creat Ratio 13.7 RATIO (10-20); Calcium,Total 9.5 mg/dL (8.5-10.1); Chloride 97 mmol/L (98-107); Cholesterol 119 mg/dL (200); Creatinine, Serum 1.24 mg/dL (0.70-1.30); EST Glomerular Filtration Rate 60 mL/min (>60); Est Glom Filt Rate - Afr Amer 73 mL/min (>60); Globulin 5.2 g/dL (2.2-4.2); Glucose 300 mg/dL (74-106); High Density Lipoprotein 54 mg/dL; Phosphorus 2.1 mg/dL (2.5-4.9); Potassium 3.9 mmol/L (3.5-5.1); Sodium Level 131 mmol/L (136-145); T4 Free Direct 1.73 ng/dL (0.76-1.46); Thyroid Stim Hormone (TSH) 1.54 uIU/mL (0.358-3.74); Triglycerides 66 mg/dL; Very Low Density Lipoprotein 13 mg/dL (5-40)
[2020-08-02 15:53] LABS: Differential Comment SCANNED
[2020-08-02 16:12] LABS: PTHIN 28.3 pg/mL (18.4-80.1)
[2020-08-04 16:08] LABS: PROEL- A/G Ratio 0.6 (0.7-1.7); PROEL- Albumin 2.7 g/dL (2.9-4.4); PROEL- Alpha-1 Globulin 0.5 g/dL (0.0-0.4); PROEL- Alpha-2 Globulin 1.2 g/dL (0.4-1.0); PROEL- Gamma Globulin 1.8 g/dL (0.4-1.8); PROEL- Globulin, Total 4.4 g/dL (2.2-3.9); PROEL- TOTAL PROTEIN 7.1 g/dL (6.0-8.5)
== END ==
PROVIDERS: PCP Family Medicine; Referring Provider Family Medicine; Visit Provider Family Medicine
DX: E03.9 Hypothyroidism, unspecified (principal); E11.22 Type 2 diabetes mellitus with diabetic chronic kidney disease; N18.30 Chronic kidney disease, stage 3 unspecified; E87.0 Hyperosmolality and hypernatremia
CPT/HCPCS: 36415; 80053; 80061; 82570; 83036; 83970; 84100; 84156; 84165; 84439; 84443; 85025

== ENCOUNTER → 2020-08-03 11:00 | Outpatient (CLI) | payer MEDICARE, SELFPAY ==
--- NOTE | 2020-08-03 11:08 | RAD_ITS ---
STUDY: X-RAY - LEFT SHOULDER REASON FOR EXAM: Male, 79 years old. Shoulder pain. TECHNIQUE: 4 view(s) of the shoulder. COMPARISON: None. FINDINGS: Generalized osteopenia. Mild arthrosis of the glenohumeral joint. Mild arthrosis of the acromioclavicular joint. Normal acromion. Normal humeral head and visualized proximal humerus. Clips projected over the left chest and neck region from prior lobectomy. Normal visualized pulmonary apex. RAD/Shoulder min 2 Views IMPRESSION: Osteopenia with mild arthrosis of the glenohumeral and acromioclavicular joints. Electronically Signed: Kaushal Fowler MD at 11:31 EDT , Service support ,
[2020-08-03 12:40] LABS: Vitamin B12 598 pg/mL (211-911)
[2020-08-03 13:07] LABS: Ferritin 483 ng/mL (26-388); Iron 44 ug/dL (65-175); Iron Binding Capacity,Total 320 ug/dL (250-450)
== END ==
PROVIDERS: PCP Family Medicine; Referring Provider Family Medicine; Visit Provider Family Medicine
DX: D64.9 Anemia, unspecified (principal); M25.512 Pain in left shoulder
CPT/HCPCS: 36415; 73030; 82607; 82728; 82746; 83540; 83550

== ENCOUNTER → 2020-08-19 16:56 | Outpatient (CLI) | payer MEDICARE, SELFPAY ==
--- NOTE | 2020-08-19 16:58 | RAD_ITS ---
INDICATION: COPD EXAMINATION/TECHNIQUE: X-RAY - XR Chest 2 Views COMPARISON: 10/01/2018. FINDINGS: Chronic postsurgical changes left lung apex with partial left pneumonectomy, surgical clips, rib defects, and volume loss. There are chronic appearing opacities bilaterally, similar in appearance to prior chest radiograph on 10/01/2018. The cardiomediastinal silhouette is unremarkable. No pleural effusion or pneumothorax. Degenerative changes of the thoracic spine. RAD/Chest PA and Lateral IMPRESSION: Chronic appearing opacities bilaterally, similar in appearance to prior chest radiograph on 10/01/2018. Electronically Signed: Vick Gruber MD at 17:20 EDT Tel , Service support ,
== END ==
PROVIDERS: PCP Family Medicine; Referring Provider Family Medicine; Visit Provider Family Medicine
DX: J44.1 Chronic obstructive pulmonary disease with (acute) exacerbation (principal)
CPT/HCPCS: 71046

== ENCOUNTER 2020-08-27 07:57 | Emergency (ER) | payer MEDICARE, SELFPAY ==
[2020-08-27 07:59] VITALS: BP 129/98; PULSE 85; RESP 16; TEMP 36.4; O2SAT 98; BMI 28.3
--- NOTE | 2020-08-27 08:08 | CT_ITS ---
STUDY: CT BRAIN WITHOUT CONTRAST REASON FOR EXAM: Male, 79 years old. Head injury RADIATION DOSAGE (If Supplied By Facility): CTDIvol = ( 44.99 ) mGy, DLP = ( 796.11 ) mGycm TECHNIQUE: Transaxial CT imaging of the brain was performed without administration of intravenous contrast material. Individualized dose optimization techniques were used for this CT. COMPARISON: No relevant priors. FINDINGS: Normal soft tissue structures. Normal calvarium. Normal size ventricles and extra-axial spaces for the patient''s age. There are mild areas of decreased attenuation within the white matter tracts of the supratentorial brain, consistent with mild microvascular disease changes. Normal basal ganglia and thalami. Normal brainstem. Normal cerebellum. There is no intracranial hemorrhage. There are no findings of an acute ischemic infarction. There are calcifications of the cavernous internal carotid arteries. Normal visualized paranasal sinuses. CT/Brain/Head without Contrast IMPRESSION: No acute intracranial process. There is no mediastinal Electronically Signed: Corby Hu MD at 9:41 EDT Tel , Service support ,
--- NOTE | 2020-08-27 08:08 | CT_ITS ---
STUDY: CT CERVICAL SPINE WITHOUT CONTRAST REASON FOR EXAM: Male, 79 years old. Head injury RADIATION DOSAGE (If Supplied By Facility): CTDIvol = ( 24.74 ) mGy, DLP = ( 620.34 ) mGycm TECHNIQUE: High resolution transaxial imaging was performed without contrast material. Sagittal and coronal images were reconstructed. Individualized dose optimization techniques were used for this CT. COMPARISON: None FINDINGS: Normal craniovertebral junction. Normal anterior atlantoaxial articulation. Normal odontoid process. There is straightening of the normal cervical lordosis. No demonstrated acute compression fracture deformity. The posterior elements appear intact. The alignment of the vertebral bodies are unremarkable. Mild demineralization of the osseous structures. No prevertebral soft tissue swelling. Depression of the superior endplate of C7 and narrowing of C6-C7 disc space. Posterior lateral degenerative spurs at the levels of C4-C5 and C6-C7: Narrowing of the neural foramina. Degenerative changes in the apophyseal joints the seventh of the left side worse at the level of C4-C5. CT/Spine Cervical without Contras IMPRESSION: 1. Straightening of the cervical spine which could be due to muscle spasm. 2. Degenerative changes as described above. 3. No demonstrated acute fracture or subluxation. Electronically Signed: Corby Hu MD at 8:59 EDT Tel , Service support ,
--- NOTE | 2020-08-27 08:10 | ED.VIS.FALL ---
HPI HPI - Fall History of Present Illness Chief Complaint: Fall Informant: patient Narrative Narrative: 79-year-old male presents with fall. States that he missed a step coming down the stairs this morning. States that he fell down approximately 12 stairs. Loss of consciousness for 30 seconds. Not on anticoagulation. States he has pain in his neck. Aching. Denies any numbness or tingling. Not up-to-date on tetanus. PFSH PFS Medical History Diabetes History of lung cancer Home Medications doxycycline hyclate 100 mg PO BID 08/27/20 [History Last Taken Unknown] ferrous sulfate [FeroSul] 325 mg PO DAILY 08/27/20 [History Last Taken Unknown] [id number] [Trelegy Ellipta] 1 inh INHALATION DAILY 08/27/20 [History Last Taken Unknown] gabapentin 100 mg PO DAILY 08/27/20 [History Last Taken Unknown] glimepiride 1 mg PO DAILY 08/27/20 [History Last Taken Unknown] levothyroxine 100 mcg PO DAILY 08/27/20 [History Last Taken Unknown] pravastatin 40 mg PO DAILY 08/27/20 [History Last Taken Unknown] sitagliptin-metformin [Janumet XR] 50 - 1,000 tab PO DAILY 08/27/20 [History Last Taken Unknown] Allergy/AdvReac Type Severity Reaction Status Date / Time No Known Allergies Allergy Verified 08/27/20 08:05 Social History Smoking Status: Former smoker ROS ROS ED Constitutional Constitutional ED: Denies chills, fever(s) or sweats Eyes Eyes: Denies blurry vision, change in vision or diplopia ENT ENT ED: Denies rhinorrhea or sore throat Cardiovascular Cardiovascular: Denies chest pain, orthopnea, palpitations or racing heartbeat Respiratory/Chest Respiratory/Chest: Denies cough, dyspnea, dyspnea on exertion, orthopnea or sputum Gastrointestinal Gastrointestinal: Denies abdominal pain, constipation, diarrhea, melena, nausea or vomiting Genitourinary Genitourinary ED: Denies dysuria, hematuria or urinary frequency Musculoskeletal Musculoskeletal: Reports neck pain; Denies arthralgias or myalgias Integumentary Denies rash Neurologic Neurologic: Denies headache(s), paresthesias or weakness Psychiatric Psychiatric: Denies anxiety or depression Hematologic/Lymphatic Hematologic/Lymphatic: Denies easy bleeding or easy bruising Allergic/Immunologic Allergic/Immunologic ED: Denies mouth swelling or tongue swelling EXAM Physical Exam Const Vital Signs: 08/27/20 07:59 Temperature 97.6 F L Temperature Source Temporal Pulse Rate 85 Respiratory Rate 16 Respiratory Effort Normal Non-Labored Respiratory Depth Normal Respiratory Pattern Normal Blood Pressure 129/98 H Blood Pressure Mean 108 Pulse Ox 98 Oxygen Delivery Method Room Air Positive well nourished and well developed General Appearance ED: well developed HEENT Reports TM's clear and moist mucous membranes HEENT Narrative: Evidence of abrasion to the left forehead as well as nose. No laceration. normocephalic Tympanic Membrane ED: Yes TM's clear Eyes PERRL and EOMs intact bilaterally Eyes Narrative: No evidence of entrapment. Neck no lymphadenopathy, supple and no JVD Neck Narrative: C-collar in place. Tenderness throughout the paracervical spine. No overlying skin changes. Chest Wall inspection of chest normal Resp normal respiratory effort and clear to auscultation bilaterally Cardio regular rate, S1 normal heart sound, S2 normal heart sound and no murmurs Peripheral Pulses: pulses 2+ throughout GI soft to palpation, non-tender and non-distended Back/Spine no CVA tenderness and no thoracic nor lumbar tenderness Extremity normal to inspection General Extremety ED: Negative for edema or tenderness General Extremity: Negative for edema Neuro oriented x3, CN's II-XII intact bilaterally and no sensory deficits noted Sensorium / Orientation: alert Motor Exam: strength 5/5 throughout Psych mental status grossly normal Skin no rashes or lesions noted MDM MDM MDM Narrative Medical decision making narrative: Patient appears well and nontoxic. Vital signs within normal limits. No evidence of abrasion to the forehead and nose. CT brain and cervical spine shows no acute process. C-collar cleared by myself. at bedside and they are advised if any vomiting or confusion patient should be return for reevaluation. Tetanus updated. Discharged home in stable condition. Lab Data Attestation: I reviewed the patient's lab results. Radiography Diagnostic Testing: Radiology Impression Brain CT 08/27/20 08:08 IMPRESSION: No acute intracranial process. There is no mediastinal Electronically Signed: Corby Hu MD at 9:41 EDT Tel , Service support , Cervical Spine CT 08/27/20 08:08 IMPRESSION: 1. Straightening of the cervical spine which could be due to muscle spasm. 2. Degenerative changes as described above. 3. No demonstrated acute fracture or subluxation. Electronically Signed: Corby Hu MD at 8:59 EDT Tel , Service support , Discharge Plan Triage Chief Complaint: Fall ED Provider: Rodríguez Goddard Dx/Rx/DC Orders Clinical Impression: Head injury, acute, Abrasion Instructions: ED Head Injury (Adult) Prescriptions: No Action pravastatin 40 mg tablet 40 mg PO DAILY RF: 0 glimepiride 1 mg tablet 1 mg PO DAILY RF: 0 levothyroxine 100 mcg tablet 100 mcg PO DAILY RF: 0 ferrous sulfate [FeroSul] 325 mg (65 mg iron) tablet 325 mg PO DAILY RF: 0 Janumet XR 50-1,000 mg tablet, ER multiphase 24 hr 50 - 1,000 tab PO DAILY RF: 0 Trelegy Ellipta 100-62.5-25 mcg blister with device 1 inh INHALATION DAILY RF: 0 doxycycline hyclate 100 mg capsule 100 mg PO BID RF: 0 gabapentin 100 mg capsule 100 mg PO DAILY RF: 0 Primary Care Provider: Hari Fisher Referrals: Hari Fisher MD [Primary Care Provider] - 2 Days Disposition Disposition: Home, Self Care
[2020-08-27] MEDS: Diphth,Pertuss(Acell),Tet Vac 0.5 ML Vial IM (08:31)
[2020-08-27 10:55] VITALS: BP 120/67; RESP 17
== END 2020-08-27 10:55 | disposition home or self-care (01) ==
PROVIDERS: Emergency Provider Emergency Medicine; PCP Family Medicine
DX: S00.81XA Abrasion of other part of head, initial encounter (principal); Z23 Encounter for immunization; E11.9 Type 2 diabetes mellitus without complications; Z79.84 Long term (current) use of oral hypoglycemic drugs; Z87.891 Personal history of nicotine dependence; W10.9XXA Fall (on) (from) unspecified stairs and steps, initial encounter; Y93.01 Activity, walking, marching and hiking; Y92.009 Unspecified place in unspecified non-institutional (private) residence as the place of occurrence of the external cause; Y99.8 Other external cause status
CPT/HCPCS: 70450; 72125; 90715; 99284

== ENCOUNTER 2020-08-31 17:07 | Emergency (ER) | payer MEDICARE, SELFPAY ==
[2020-08-31] VITALS (10 sets, daily range): BP systolic 107–133; BP diastolic 43–93; PULSE 90–135; RESP 18–22; TEMP 37.2–37.9; O2SAT 93–96; BMI 27.7
--- NOTE | 2020-08-31 17:53 | EKG12_ITS ---
Test Reason : Blood Pressure : / mmHG Vent. Rate : 111 BPM Atrial Rate : 111 BPM P-R Int : 128 ms QRS Dur : 126 ms QT Int : 350 ms P-R-T Axes : 097 -69 085 degrees QTc Int : 476 ms Sinus tachycardia with Premature supraventricular complexes Left axis deviation Right bundle branch block Abnormal ECG Confirmed by BRODY LARIOS, NUBIA ([id number]), image editor MAHIN WAYNE ([id number]) on 09/02/2020 1:11:05 PM Referred By: YESENIA Confirmed By:NUBIA SKINNER MD
--- NOTE | 2020-08-31 17:58 | NURSING ---
NO OLD EKGS
[2020-08-31] MEDS: 0.9% Normal Saline 1,000 ML 999 ML IV (18:06)
[2020-08-31] MEDS: Morphine 4 MG/ML Syringe IV (18:09)
[2020-08-31] MEDS: Ondansetron 4 MG/2 ML Vial IV (18:09)
--- NOTE | 2020-08-31 18:18 | RAD_ITS ---
STUDY: X-RAY CHEST REASON FOR EXAM: Male, 79 years old. Cp TECHNIQUE: Single frontal view of the chest. COMPARISON: 08/19/2020. FINDINGS: Similar postsurgical changes, scarring and volume loss with resection of multiple ribs at the left apex. New foci of gas within the soft tissues adjacent to the left apex may represent infection the appropriate clinical setting. The aerated lungs are grossly clear. Normal size heart. Normal mediastinum and gordy. Normal visualized pulmonary arteries. Normal visualized aortic arch and descending thoracic aorta. There is no demonstrated abnormality of the visualized soft tissue structures of the upper abdomen. RAD/Chest 1 View (Portable) IMPRESSION: Extensive reidentified postsurgical changes. New foci of gas within the soft tissues adjacent to the left apex may represent infection/abscess the appropriate clinical setting. Electronically Signed: Gurpreet Cardona MD at 18:44 EDT Tel , Service support ,
--- NOTE | 2020-08-31 18:20 | NURSING ---
DR PATTERSON TALKING TO DB CORONADO ABOUT TRANSFER
[2020-08-31 18:35] LABS: International Normalized Ratio 1.2; Prothrombin Time (Protime)PT. 14.4 SECONDS (11.7-14.9)
[2020-08-31 18:36] LABS: Partial Thromboplast Time 31.1 Seconds (24.1-36.2)
--- NOTE | 2020-08-31 18:56 | EDS_ITS ---
HPI History of Present Illness Chief Complaint: Edema Narrative Narrative: Patient presents with left thoracic pain. He had thoracic surgery for lung cancer 4 years ago. He had an outpatient CT which showed possible chest wall abscess he is febrile and was sent to the ED by his PCP. [facility] Medical History (Updated 08/27/20 @ 09:[address] Rodríguez Goddard DO) Diabetes History of lung cancer Home Medications doxycycline hyclate 100 mg PO BID 08/27/20 [History Last Taken Unknown] ferrous sulfate [FeroSul] 325 mg PO DAILY 08/27/20 [History Last Taken Unknown] [id number]-[id number]-[id number] [Trelegy Ellipta] 1 inh INHALATION DAILY 08/27/20 [History Last Taken Unknown] gabapentin 100 mg PO DAILY 08/27/20 [History Last Taken Unknown] glimepiride 1 mg PO DAILY 08/27/20 [History Last Taken Unknown] levothyroxine 100 mcg PO DAILY 08/27/20 [History Last Taken Unknown] pravastatin 40 mg PO DAILY 08/27/20 [History Last Taken Unknown] sitagliptin-metformin [Janumet XR] 50 - 1,000 tab PO DAILY 08/27/20 [History Last Taken Unknown] Allergy/AdvReac Type Severity Reaction Status Date / Time No Known Allergies Allergy Verified 08/31/20 17:09 Surgical History (Updated 08/31/20 @ 17:41 by Estrella Fox) H/O pneumonectomy Social History Smoking Status: Former smoker ROS ROS ED ROS Narrative Past medical history: Reviewed Medications: Reviewed Social history: Noncontributory Review of systems: All systems negative except as indicated General: fever Eyes: No visual changes ENT: No upper airway congestion, normal voice Neck: No neck pain Cardiovascular: No left-sided chest pain, he does have left-sided back pain Respiratory: No shortness of breath or cough Gastrointestinal: No abdominal pain, nausea vomiting or diarrhea Genitourinary: No dysuria Musculoskeletal: Denies myalgias no difficulty with ambulation Skin: No rash Neurological: No memory loss, confusion or any focal weakness Psych: No recent behavioral changes Hematologic: No easy bleeding or easy bruising EXAM Physical Exam Narrative Exam Narrative: Physical exam General: Patient appears in some distress he does appear somewhat ill. Head: Normocephalic, Atraumatic Eyes: Conjunctiva not pale ENT: Moist mucous membranes Neck: Supple, Nontender, No lymphadenopathy Cardiovascular: Regular rate, Regular rhythm Respiratory: No distress, CTA bilaterally Abdomen: Soft, Nontender, Nondistended Back: Nontender, Normal Inspection. Negative for: CVA tenderness Extremities: Nontender, No edema Skin: Normal color, No rash Neurological: Alert, Normal Strength, Normal Sensation Psychological: Normal affect Const Vital Signs: 08/31/20 17:09 08/31/20 17:25 08/31/20 17:40 Temperature 98.9 F 100.3 F H Temperature Source Temporal Oral Pulse Rate 135 H 116 H Respiratory Rate 22 H 20 H Respiratory Pattern Normal Blood Pressure 127/93 H Blood Pressure Mean 104 Pulse Ox 93 95 Oxygen Delivery Method Room Air Room Air 08/31/20 18:07 08/31/20 19:13 08/31/20 19:55 Temperature 99.8 F H Temperature Source Oral Pulse Rate 111 H 99 Respiratory Rate 20 H 20 H Respiratory Pattern Blood Pressure 133/58 H 107/43 L Blood Pressure Mean 83 64 Pulse Ox 96 95 Oxygen Delivery Method Room Air Room Air MDM MDM MDM Narrative Medical decision making narrative: Patient presents with new foci of air which may be a focus of infection and/or new tumor formation. Per their request I called [facility] and patient was accepted. I started the patient on antibiotics. Otherwise he appears well and will be transported soon. Lab Data Labs: Laboratory Results - last 24 hr 08/31/20 08/31/20 08/31/20 17:40 18:06 18:30 WBC 13.6 H RBC 3.83 L Hgb 11.6 L Hct 37.5 L MCV 97.9 H MCH 30.3 MCHC 30.9 L RDW Std Deviation 51.9 H RDW Coeff of Hilaria 20.3 H Plt Count 233 MPV 10.9 Immature Gran % (Auto) 0.700 Neut % (Auto) 88.9 H Lymph % (Auto) 3.4 L Wilbarger % (Auto) 6.4 Eos % (Auto) 0.4 Baso % (Auto) 0.2 Absolute Neuts (auto) 12.1 H Absolute Lymphs (auto) 0.46 L Nucleated RBC % 0 Differential Comment Platelet Estimate ADEQUATE RBC Morphology N CHROM Anisocytosis 1+ PT 14.4 INR 1.2 APTT 31.1 Sodium Potassium Chloride Carbon Dioxide Anion Gap BUN Creatinine Estim Creat Clear Calc Est GFR (MDRD) Af Amer Est GFR (MDRD) Non-Af BUN/Creatinine Ratio Glucose Lactic Acid 1.6 Calcium Total Bilirubin AST ALT Alkaline Phosphatase Total Protein Albumin Globulin Albumin/Globulin Ratio 08/31/20 19:00 WBC RBC Hgb Hct MCV MCH MCHC RDW Std Deviation RDW Coeff of Hilaria Plt Count MPV Immature Gran % (Auto) Neut % (Auto) Lymph % (Auto) Wilbarger % (Auto) Eos % (Auto) Baso % (Auto) Absolute Neuts (auto) Absolute Lymphs (auto) Nucleated RBC % Differential Comment Platelet Estimate RBC Morphology Anisocytosis PT INR APTT Sodium 133 L Potassium 4.4 Chloride 98 Carbon Dioxide 30.0 Anion Gap 5 BUN 21 H Creatinine 1.00 Estim Creat Clear Calc 69.91 Est GFR (MDRD) Af Amer 93 Est GFR (MDRD) Non-Af 77 BUN/Creatinine Ratio 21.1 H Glucose 203 H Lactic Acid Calcium 8.6 Total Bilirubin 0.60 AST 24 ALT 26 Alkaline Phosphatase 147 H Total Protein 6.7 Albumin 2.2 L Globulin 4.5 H Albumin/Globulin Ratio 0.5 L Radiography Diagnostic Testing: Radiology Impression Chest X-Ray 08/31/20 18:18 IMPRESSION: Extensive reidentified postsurgical changes. New foci of gas within the soft tissues adjacent to the left apex may represent infection/abscess the appropriate clinical setting. Electronically Signed: Gurpreet Cardona MD at 18:44 EDT Tel , Service support , Discharge Plan Triage Chief Complaint: Edema ED Provider: Fili Wagner Dx/Rx/DC Orders Prescriptions: No Action pravastatin 40 mg tablet 40 mg PO DAILY RF: 0 glimepiride 1 mg tablet 1 mg PO DAILY RF: 0 levothyroxine 100 mcg tablet 100 mcg PO DAILY RF: 0 ferrous sulfate [FeroSul] 325 mg (65 mg iron) tablet 325 mg PO DAILY RF: 0 Janumet XR 50-1,000 mg tablet, ER multiphase 24 hr 50 - 1,000 tab PO DAILY RF: 0 Trelegy Ellipta 100-62.5-25 mcg blister with device 1 inh INHALATION DAILY RF: 0 doxycycline hyclate 100 mg capsule 100 mg PO BID RF: 0 gabapentin 100 mg capsule 100 mg PO DAILY RF: 0 Primary Care Provider: Hari Fisher
[2020-08-31 19:09] LABS: Absolute Lymphocyte Count 0.46 X10^3/uL (0.83-4.51); Absolute Neutrophil Count 12.1 X10^3/uL (2.0-7.7); Basophil# 0.03 X10^3/uL; Basophil% 0.2 % (0-1); Eosinophil# 0.06 X10^3/uL; Eosinophils% 0.4 % (0-5); Hematocrit 37.5 % (40-54); Hemoglobin 11.6 g/dL (13.0-16.5); Lymphocyte # 0.46 X10^3/ul (0.83-4.51); Lymphocyte % 3.4 % (19-41); Mean Corp Hgb Conc 30.9 g/dL (32-36); Mean Corpuscular Hgb 30.3 pg (27.0-32.0); Mean Corpuscular Volume 97.9 fL (80-94); Mean Platelet Vol. 10.9 fl (6.2-12.0); Monocyte# 0.87 X10^3/uL; Monocyte% 6.4 % (0-10); NRBC Flagged by Analyzer 0 % (0-5); Neutrophil # 12.07 X10^3/uL (2.7-7.7); Neutrophil % 88.9 % (47-70); POSITIVE DIFFERENTIAL YES; POSITIVE MORPHOLOGY YES; Platelet Count 233 K/mm3 (150-450); RBC Distribution Width CV 20.3 % (11.6-14.6); RBC Distribution Width SD 51.9 fl (35.1-43.9); Red Blood Count 3.83 M/mm3 (4.6-6.2); White Blood Count 13.6 K/mm3 (4.4-11.0)
[2020-08-31 19:11] LABS: Differential Indicated SCAN CRITERIA MET
[2020-08-31 19:19] LABS: Lactic Acid 1.6 mmol/L (0.4-1.9)
[2020-08-31 19:21] LABS: Anisocytosis 1+; Platelet Estimate ADEQUATE (ADEQ); Red Cell Morphology N CHROM NORMAL (NORM C&C)
[2020-08-31 19:29] LABS: ALB/GLOB Ratio 0.5 RATIO (0.9-2.4); AST(SGOT) 24 U/L (15-37); Alanine Aminotransfer ALT/SGPT 26 U/L (16-61); Albumin, Serum 2.2 g/dL (3.2-5.0); Alkaline Phosphatase 147 U/L (45-117); Anion Gap 5 (5-15); BUN 21 mg/dL (7-18); BUN/Creat Ratio 21.1 RATIO (10-20); Calcium,Total 8.6 mg/dL (8.5-10.1); Chloride 98 mmol/L (98-107); EST Glomerular Filtration Rate 77 mL/min (>60); Est Glom Filt Rate - Afr Amer 93 mL/min (>60); Estimated Creatinine Clearance 69.91 ml/min; Globulin 4.5 g/dL (2.2-4.2); Glucose 203 mg/dL (74-106); Potassium 4.4 mmol/L (3.5-5.1); Protein, Total 6.7 g/dL (6.4-8.2); Sodium Level 133 mmol/L (136-145)
== END 2020-08-31 22:26 | disposition other institution (70) ==
PROVIDERS: Emergency Provider Emergency Medicine; PCP Family Medicine
DX: R60.0 Localized edema (principal); M54.6 Pain in thoracic spine; E11.9 Type 2 diabetes mellitus without complications; Z85.118 Personal history of other malignant neoplasm of bronchus and lung; Z79.84 Long term (current) use of oral hypoglycemic drugs; Z87.891 Personal history of nicotine dependence
CPT/HCPCS: 71045; 80053; 83605; 85025; 85610; 85730; 87040; 87426; 93005; 96365; 96366; 96367; 96375; 99285; J7030; J7040; A4216; J2405